=== PATIENT | female | born 1935 | race Caucasian/White ===

== ENCOUNTER → 2016-07-25 | Outpatient (CLI) | payer MEDICARE ==
--- NOTE | 2016-07-25 12:38 | ECHOS ---
DATE OF SERVICE: 07/25/2016 AGE: 81Y SEX: F HT: 63 WT: 128lbs. Protocol Colin: X Others: Stress Echo Stage: II Dur. of Exercise: 6 minutes *Heart Rate Blood Pressure *Rest: 80 Rest: 132/79 * *Max. Achieved: 117 Maximum BP: 170/94 85% PMHR: 118 100% PMHR: 139 *METS: 6.3 INDICATION OF THE STUDY: Chest pain. MEDICATIONS: Synthroid. STRESS DATA: Pretesting physical examination showed a heart rate of 80, pressure is 132/79 mmHg. Baseline EKG showed sinus rhythm. The patient exercised on the treadmill according to Colin protocol for a total of 6 minutes and achieved 6.3 METs. Max heart rate is 117 beats per minutes, which is about 84% of maximum predicted heart rate. Maximum blood pressure was 170/94 mmHg. Clinically, the patient did not have any symptoms of chest pain or chest discomfort during the testing or on recovery. The EKG showed about 0.[address] segment changes most prominent in the inferolateral leads. ECHOCARDIOGRAM IMAGES: On echocardiogram images from parasternal long axis view, parasternal short axis view, apical 4 chamber and apical 2 chamber view were obtained as the baseline images, at the peak of the heart rate, as well as on recovery. The echocardiogram images showed good augmentation in the left ventricular systolic function without any evidence of wall motion abnormalities consistent with ischemia. CONCLUSION: 1. Average exercise capacity. 2. Mild EKG changes in response to exercise. 3. Normal echocardiogram in response to exercise.
== END | disposition home or self-care (01) ==
LOC: RADNMMAIN 10:58
PROVIDERS: ATTEND Family Medicine
DX: R07.9 Chest pain, unspecified (principal)
CPT/HCPCS: 93017; 93350

== ENCOUNTER 2019-11-06 16:34 | Emergency (ER) | payer MEDICARE ==
--- NOTE | 2019-11-06 17:15 | ED ---
Skin/Abscess/FB HPI - General Chief complaint: Skin/Abscess/Foreign Body Stated complaint: Cyst on Neck Time Seen by Provider: 11/06/19 16:51 Source: patient Mode of arrival: ambulatory Limitations: no limitations - History of Present Illness Initial comments: Patient is an 84-year-old female presenting to emergency Department with a chief complaint of a cyst. Patient reports she had a cyst on the back of her neck for many years which did not cause any problems. Patient reports over the last week she has developed gradual increase in redness and tenderness. Patient reports she noticed today there was yellow/white discharge. Patient states the region is tender to palpation. States the pain is slightly worse with left and right rotation. Denies any night sweats fevers or chills. Denies taking medication to alleviate the symptoms. States her PCP evaluated the cyst one week ago but it was not symptomatic then - Related Data Home Medications Medication Instructions Recorded Confirmed Citalopram Hydrobromide [CeleXA] 20 mg PO DAILY 11/06/19 11/06/19 Donepezil HCl [Aricept] 10 mg PO HS 11/06/19 11/06/19 Levothyroxine Sodium [Synthroid] 75 mcg PO DAILY 11/06/19 11/06/19 Pravastatin Sodium [Pravachol] 40 mg PO DAILY 11/06/19 11/06/19 Prevagen 1 tab PO DAILY 11/06/19 11/06/19 Previous Rx's Medication Instructions Recorded Sulfamethox-Tmp 800-160Mg [Bactrim 1 each PO Q12HR #20 tab 11/06/19 Ds] Allergies Allergy/AdvReac Type Severity Reaction Status Date / Time No Known Allergies Allergy Verified 11/06/19 18:57 Review of Systems ROS Statement: Those systems with pertinent positive or pertinent negative responses have been documented in the HPI. ROS Other: All systems not noted in ROS Statement are negative. Past Medical History Past Medical History: Hyperlipidemia, Thyroid Disorder History of Any Multi-Drug Resistant Organisms: None Reported Past Surgical History: Appendectomy Additional Past Surgical History / Comment(s): VEIN STRIPPING Past Psychological History: No Psychological Hx Reported Smoking Status: Never smoker Past Alcohol Use History: Rare Past Drug Use History: None Reported General Exam Limitations: no limitations General appearance: alert, in no apparent distress Head exam: Present: atraumatic, normocephalic, normal inspection Eye exam: Present: normal appearance, PERRL, EOMI Pupils: Present: normal accommodation ENT exam: Present: normal exam, normal oropharynx, mucous membranes moist Neck exam: Present: tenderness (Tenderness on the side of abscess.), full ROM. Absent: normal inspection (Abscess measuring 5 cm in diameter with yellow/white discharge noted on the posterior aspect of the neck.) Respiratory exam: Present: normal lung sounds bilaterally Cardiovascular Exam: Present: regular rate, normal rhythm, normal heart sounds Extremities exam: Present: normal inspection, full ROM Back exam: Present: normal inspection, full ROM Neurological exam: Present: alert, oriented X3 Psychiatric exam: Present: normal affect, normal mood Skin exam: Present: warm, dry, intact, normal color Course Vital Signs 11/06/19 11/06/19 16:36 18:39 Temperature 98.1 F Pulse Rate 66 62 Respiratory 18 18 Rate Blood Pressure 138/59 158/88 O2 Sat by Pulse 97 95 Oximetry Procedures - Incision & Drainage Consent Obtained: verbal consent Indication: Abscess Site: neck Size (cm): 5 Anesthetic Used: lidocaine 1%, with epi Amount (mLs): 5 I&D Cleaning Method: Alcohol Wipe Sterile Field Used?: No Scalpel Used: #11 Needle Aspiration Performed?: No Irrigation Performed?: Yes I&D Drainage Obtained: Pus, Blood Culture Obtained?: Yes Complications: pain, bleeding Patient Tolerated Procedure: well, no complications Medical Decision Making - Medical Decision Making Patient is an 84-year-old female presenting to emergency Department with chief complaint of cyst on the neck. On exam there appears to be a 5 cm lesion on the posterior aspect of the neck. CBC CMP unremarkable. CT of the soft tissue neck was obtained reveals subcutaneous abscess formation with no signs of osteomyelitis or phlegmon. Incision and drainage was performed an large amount of pus were removed. The lesion decreased drastically size. Patient started on Bactrim. Upon discharge, patient is hypertensive. Stay she does not take any antihypertensive medications. Wound culture obtained. I suspect the hypertension is secondary to the drainage where the patient experienced discomfort. Advised the patient to follow-up with her primary care in regards to her hypertension. Return parameters were thoroughly discussed with patient was understanding and agreeable. Case discussed with physician. - Lab Data Result diagrams: 11/06/19 17:34 11/06/19 17:34 Lab Results 05/30/20 05/30/20 Range/Units 17:34 17:34 WBC 8.6 (3.8-10.6) k/uL RBC 4.81 (3.80-5.40) m/uL Hgb 15.3 (11.4-16.0) gm/dL Hct 46.6 H (34.0-46.0) % MCV 97.0 (80.0-100.0) fL MCH 31.8 (25.0-35.0) pg MCHC 32.7 (31.0-37.0) g/dL RDW 12.8 (11.5-15.5) % Plt Count 228 (150-450) k/uL Neutrophils % 77 % Lymphocytes % 12 % Monocytes % 7 % Eosinophils % 2 % Basophils % 0 % Neutrophils # 6.6 (1.3-7.7) k/uL Lymphocytes # 1.0 (1.0-4.8) k/uL Monocytes # 0.6 (0-1.0) k/uL Eosinophils # 0.2 (0-0.7) k/uL Basophils # 0.0 (0-0.2) k/uL Sodium 134 L (137-145) mmol/L Potassium 4.0 (3.5-5.1) mmol/L Chloride 96 L (98-107) mmol/L Carbon Dioxide 32 H (22-30) mmol/L Anion Gap 6 mmol/L BUN 20 H (7-17) mg/dL Creatinine 0.68 (0.52-1.04) mg/dL Est GFR (CKD-EPI)AfAm >90 (>60 ml/min/1.73 sqM) Est GFR (CKD-EPI)NonAf 81 (>60 ml/min/1.73 sqM) Glucose 96 (74-99) mg/dL Calcium 9.8 (8.4-10.2) mg/dL Total Bilirubin 1.0 (0.2-1.3) mg/dL AST 27 (14-36) U/L ALT 14 (4-34) U/L Alkaline Phosphatase 121 (38-126) U/L Total Protein 8.0 (6.3-8.2) g/dL Albumin 4.8 (3.5-5.0) g/dL Disposition Clinical Impression: Abscess of skin of neck Disposition: HOME SELF-CARE Condition: Stable Instructions (If sedation given, give patient instructions): Abscess (ED), Abscess Incision and Drainage (DC) Additional Instructions: Take prescribed medication as directed. Apply warm compress to the neck. Replace gauze daily. Follow with the primary care. Return to emergency department if symptoms worsen. Prescriptions: Sulfamethox-Tmp 800-160Mg [Bactrim Ds] 1 each PO Q12HR #20 tab Is patient prescribed a controlled substance at d/c from ED?: No Referrals: James Warren MD [Primary Care Provider] - 1-2 days Time of Disposition: 19:32
[2019-11-06 18:04] LABS: Basophils % (A) 0 %; Eosinophils # (A) 0.2 k/uL (0-0.7); Eosinophils % (A) 2 %; HCT 46.6 % (34.0-46.0); HGB 15.3 gm/dL (11.4-16.0); Lymphocytes % (A) 12 %; MCH 31.8 pg (25.0-35.0); MCHC 32.7 g/dL (31.0-37.0); Mean Platelet Volume 6.9; Monocytes # (A) 0.6 k/uL (0-1.0); Monocytes % (A) 7 %; Neutrophils # (A) 6.6 k/uL (1.3-7.7); Neutrophils % (A) 77 %; Platelet Count 228 k/uL (150-450); RBC 4.81 m/uL (3.80-5.40); RDW 12.8 % (11.5-15.5); WBC 8.6 k/uL (3.8-10.6)
[2019-11-06 18:12] LABS: ALT 14 U/L (4-34); AST 27 U/L (14-36); African American GFR (CKD) >90 (>60 ml/min/1.73 sqM); Albumin 4.8 g/dL (3.5-5.0); Alkaline Phosphatase 121 U/L (38-126); Anion Gap 6 mmol/L; Blood Urea Nitrogen 20 mg/dL (7-17); Calcium 9.8 mg/dL (8.4-10.2); Carbon Dioxide 32 mmol/L (22-30); Chloride 96 mmol/L (98-107); Glucose 96 mg/dL (74-99); Non-African American GFR(CKD) 81 (>60 ml/min/1.73 sqM); Sodium 134 mmol/L (137-145)
--- NOTE | 2019-11-06 19:04 | CT ---
EXAMINATION TYPE: CT soft tissue neck w con DATE OF EXAM: 11/06/2019 COMPARISON: None HISTORY: Abscess posterior neck. CT DLP: 210.5 mGycm Automated exposure control for dose reduction was used. CONTRAST: Performed with IV Contrast, patient injected with 100 mL of Isovue 300. Multiple axial sections were obtained from the level of the aortic arch to the top of the orbits with intravenous contrast. FINDINGS: Orbital margins are intact. There is no evidence of retro-orbital mass. Parotid glands are symmetric. There is normal aeration of the visualized paranasal sinuses. There is normal aeration of the tempor al bones. There is metal artifact from the dental work which obscures the mandibular region. Submandi bular salivary glands appear symmetric. The thyroid gland has normal size. I see no cervical lymphade nopathy. Prevertebral soft tissues appear normal. Epiglottis is normal. There is no evidence of pharyngeal mas s. Tonsils and adenoids are within normal limits. The tongue appears normal. Subglottic trachea appea rs normal. There is narrowing of C5-6 and C6-7 disc spaces with spurring. Cervical vertebra show some straightening. There is hypertrophic cervical facet arthropathy in the mid cervical spine. There is a 2 cm rounded subcutaneous fluid density mass posterior to the spinous process of C4 and C5 vertebra. The wall is somewhat irregular. I see no focal bone destruction. The images show no pathologic enhancement. IMPRESSION: Subcutaneous posterior fluid density mass consistent with abscess in the midline. No evidence of oste omyelitis. Spondylotic changes in the cervical spine. No anterior cervical significant abnormality id entified. IMPRESSION:
[2019-11-06] MEDS ORDERED: LIDOCAINE 1%-EPI 1:100,000 20 ML VIAL SQ STA (19:06)
[2019-11-06 20:57] VITALS: BP 193/99; PULSE 56; RESP 19; TEMP 97
== END 2019-11-06 20:57 | disposition home or self-care (01) ==
LOC: EC 16:34
DX: L02.11 Cutaneous abscess of neck (principal); I10 Essential (primary) hypertension; E78.5 Hyperlipidemia, unspecified; E07.9 Disorder of thyroid, unspecified; Z79.899 Other long term (current) drug therapy; Z79.890 Hormone replacement therapy
CPT/HCPCS: 36415; 80053; 85025; 87070; 87205; 70491; 10060; 99284; Q9967

== ENCOUNTER 2021-11-14 12:54 | Inpatient (IN) | payer MEDICARE ==
[2021-11-14] MEDS ORDERED: LORazepam 2 MG/ML INJ IV STA ×2 (13:05→16:07)
--- NOTE | 2021-11-14 13:08 | ED ---
General Adult HPI - General Chief complaint: Syncope Stated complaint: syncope Time Seen by Provider: 11/14/21 12:55 Source: patient, family, EMS, RN notes reviewed, old records reviewed Mode of arrival: EMS - History of Present Illness Initial comments: This is an 86-year-old female who presents emergency Department after having had a syncopal episode. Per EMS patient passed out at home and was out for approximately 5 minutes. EMS thought that the patient was somewhat altered however daughter is here now states she is at her neurologic baseline she has dementia and some anxiety. Patient denies any complaints per patient denies headache patient denies numbness weakness. Patient denies any chest pain difficult breathing shortness breath per patient denies any fever chills or cough per patient denies any abdominal pain patient denies nausea vomiting diarrhea. According to EMS the initial blood pressure was low systolic was in the 80s however after a bolus of fluid patient's blood pressure came up to a normal range. Patient does not remember passing out or the events surrounding it. Daughter states this is normal. - Related Data Home Medications Medication Instructions Recorded Confirmed Citalopram Hydrobromide [CeleXA] 20 mg PO DAILY 11/06/19 11/14/21 Donepezil HCl [Aricept] 10 mg PO HS 11/06/19 11/14/21 Levothyroxine Sodium [Synthroid] 75 mcg PO DAILY 11/06/19 11/14/21 Pravastatin Sodium [Pravachol] 40 mg PO DAILY 11/06/19 11/14/21 ALPRAZolam [Xanax] 0.25 mg PO DAILY PRN 11/14/21 11/14/21 Cholecalciferol (Vitamin D3) 125 mcg PO Q48H 11/14/21 11/14/21 [Vitamin D3 (125 MCG = 5,000 IU)] Cyanocobalamin (Vitamin B-12) 5,000 mcg PO DAILY 11/14/21 11/14/21 [Vitamin B-12] Fluticasone Nasal [place] [Flonase 1 spray EA NOSTRIL DAILY 11/14/21 11/14/21 Nasal [place]] Ginkgo Biloba 120mg 120 mg PO DAILY 11/14/21 11/14/21 Memantine [Namenda] 10 mg PO BID 11/14/21 11/14/21 Naproxen Sodium [Aleve] 220 mg PO DAILY PRN 11/14/21 11/14/21 Omeprazole 20 mg PO DAILY 11/14/21 11/14/21 Psyllium Husk 100% [Metamucil 6 gm PO DAILY 11/14/21 11/14/21 Packet] bisacodyL [Dulcolax] 5 mg PO Q48H 11/14/21 11/14/21 hydrALAZINE HCL [Apresoline] 50 mg PO BID 11/14/21 11/14/21 Allergies Allergy/AdvReac Type Severity Reaction Status Date / Time No Known Allergies Allergy Verified 11/14/21 14:17 Review of Systems ROS Statement: Those systems with pertinent positive or pertinent negative responses have been documented in the HPI. ROS Other: All systems not noted in ROS Statement are negative. Past Medical History Past Medical History: Hyperlipidemia, Thyroid Disorder History of Any Multi-Drug Resistant Organisms: None Reported Past Surgical History: Appendectomy Additional Past Surgical History / Comment(s): VEIN STRIPPING Past Psychological History: No Psychological Hx Reported Smoking Status: Unknown if ever smoked Past Alcohol Use History: Rare Past Drug Use History: None Reported General Exam - General Exam Comments Initial Comments: GENERAL: Patient is well-developed and well-nourished. Patient is nontoxic and well- hydrated and is in mild distress. ENT: Neck is soft and supple. No significant lymphadenopathy is noted. Oropharynx is clear. Moist mucous membranes. Neck has full range of motion without eliciting any pain. EYES: The sclera were anicteric and conjunctiva were pink and moist. Extraocular movements were intact and pupils were equal round and reactive to light. Ey elids were unremarkable. PULMONARY: Unlabored respirations. Good breath sounds bilaterally. No audible rales rhonchi or wheezing was noted. CARDIOVASCULAR: There is a regular rate and rhythm without any murmurs gallops or rubs. ABDOMEN: Soft and nontender with normal bowel sounds. SKIN: Skin is clear with no lesions or rashes and otherwise unremarkable. NEUROLOGIC: Patient is alert and oriented x3. Cranial nerves II through XII are grossly intact. Motor and sensory are also intact. Normal speech, volume and content. Symmetrical smile. MUSCULOSKELETAL: Normal extremities with adequate strength and full range of motion. LYMPHATICS: No significant lymphadenopathy is noted PSYCHIATRIC: Patient is mildly anxious. Course Vital Signs 11/14/21 11/14/21 11/14/21 12:56 14:06 16:59 Temperature 97.9 F Pulse Rate 60 64 56 L Respiratory 18 18 18 Rate Blood Pressure 138/76 138/76 147/82 O2 Sat by Pulse 94 L 94 L Oximetry Medical Decision Making - Medical Decision Making EKG shows sinus bradycardia 55 bpm UT interval is 106 dresses 97 QT intervals 516 QTC is 504. Patient's EKG has a long QT but there is no ST segment patient depression. CT of the brain shows no acute abnormality. Chest x-ray shows no acute abnormality. I spoke with Dr. Dover he agreed to admit the patient admitted the patient wrote admitting orders. I consulted cardiology - Lab Data Result diagrams: 11/14/21 13:06 11/14/21 13:06 Lab Results 11/14/21 11/14/21 11/14/21 Range/Units 13:06 13:06 13:06 WBC 5.0 (3.8-10.6) k/uL RBC 4.39 (3.80-5.40) m/uL Hgb 13.2 (11.4-16.0) gm/dL Hct 41.7 (34.0-46.0) % MCV 95.0 (80.0-100.0) fL MCH 30.1 (25.0-35.0) pg MCHC 31.6 (31.0-37.0) g/dL RDW 12.1 (11.5-15.5) % Plt Count 226 (150-450) k/uL MPV 7.1 Neutrophils % 74 % Lymphocytes % 14 % Monocytes % 9 % Eosinophils % 2 % Basophils % 1 % Neutrophils # 3.7 (1.3-7.7) k/uL Lymphocytes # 0.7 L (1.0-4.8) k/uL Monocytes # 0.4 (0-1.0) k/uL Eosinophils # 0.1 (0-0.7) k/uL Basophils # 0.0 (0-0.2) k/uL PT 10.3 (9.0-12.0) sec INR 0.9 (<1.2) APTT 20.4 L (22.0-30.0) sec Sodium 129 L (137-145) mmol/L Potassium 3.9 (3.5-5.1) mmol/L Chloride 97 L (98-107) mmol/L Carbon Dioxide 23 (22-30) mmol/L Anion Gap 9 mmol/L BUN 13 (7-17) mg/dL Creatinine 0.83 (0.52-1.04) mg/dL Est GFR (CKD-EPI)AfAm 74 (>60 ml/min/1.73 sqM) Est GFR (CKD-EPI)NonAf 64 (>60 ml/min/1.73 sqM) Glucose 120 H (74-99) mg/dL POC Glucose (mg/dL) (75-99) mg/dL POC Glu Learning Coach ID Calcium 8.4 (8.4-10.2) mg/dL Magnesium 1.9 (1.6-2.3) mg/dL Total Bilirubin 1.1 (0.2-1.3) mg/dL AST 34 (14-36) U/L ALT 17 (4-34) U/L Alkaline Phosphatase 75 (38-126) U/L Troponin I (0.000-0.034) ng/mL Total Protein 6.2 L (6.3-8.2) g/dL Albumin 3.7 (3.5-5.0) g/dL Urine Color Urine Appearance (Clear) Urine pH (5.0-8.0) Ur Specific [place] (1.001-1.035) Urine Protein (Negative) Urine Glucose (UA) (Negative) Urine Ketones (Negative) Urine Blood (Negative) Urine Nitrite (Negative) Urine Bilirubin (Negative) Urine Urobilinogen (<2.0) mg/dL Ur Leukocyte Esterase (Negative) 11/14/21 11/14/21 11/14/21 Range/Units 13:06 13:07 15:03 WBC (3.8-10.6) k/uL RBC (3.80-5.40) m/uL Hgb (11.4-16.0) gm/dL Hct (34.0-46.0) % MCV (80.0-100.0) fL MCH (25.0-35.0) pg MCHC (31.0-37.0) g/dL RDW (11.5-15.5) % Plt Count (150-450) k/uL MPV Neutrophils % % Lymphocytes % % Monocytes % % Eosinophils % % Basophils % % Neutrophils # (1.3-7.7) k/uL Lymphocytes # (1.0-4.8) k/uL Monocytes # (0-1.0) k/uL Eosinophils # (0-0.7) k/uL Basophils # (0-0.2) k/uL PT (9.0-12.0) sec INR (<1.2) APTT (22.0-30.0) sec Sodium (137-145) mmol/L Potassium (3.5-5.1) mmol/L Chloride (98-107) mmol/L Carbon Dioxide (22-30) mmol/L Anion Gap mmol/L BUN (7-17) mg/dL Creatinine (0.52-1.04) mg/dL Est GFR (CKD-EPI)AfAm (>60 ml/min/1.73 sqM) Est GFR (CKD-EPI)NonAf (>60 ml/min/1.73 sqM) Glucose (74-99) mg/dL POC Glucose (mg/dL) 121 H (75-99) mg/dL POC Glu Learning Coach ID Diane Soto Calcium (8.4-10.2) mg/dL Magnesium (1.6-2.3) mg/dL Total Bilirubin (0.2-1.3) mg/dL AST (14-36) U/L ALT (4-34) U/L Alkaline Phosphatase (38-126) U/L Troponin I <0.012 (0.000-0.034) ng/mL Total Protein (6.3-8.2) g/dL Albumin (3.5-5.0) g/dL Urine Color Light Yellow Urine Appearance Clear (Clear) Urine pH 8.0 (5.0-8.0) Ur Specific [place] 1.007 (1.001-1.035) Urine Protein Negative (Negative) Urine Glucose (UA) Negative (Negative) Urine Ketones Negative (Negative) Urine Blood Negative (Negative) Urine Nitrite Negative (Negative) Urine Bilirubin Negative (Negative) Urine Urobilinogen <2.0 (<2.0) mg/dL Ur Leukocyte Esterase Negative (Negative) Disposition Clinical Impression: Syncope, Hypotension Disposition: ADMITTED IP TO THIS HOSP Referrals: James Warren MD [Primary Care Provider] - 1-2 days Time of Disposition: 18:11
[2021-11-14 13:10] LABS: Glucose,Whole Blood 121 mg/dL (75-99)
[2021-11-14 13:20] LABS: Basophils % (A) 1 %; Eosinophils # (A) 0.1 k/uL (0-0.7); Eosinophils % (A) 2 %; HCT 41.7 % (34.0-46.0); HGB 13.2 gm/dL (11.4-16.0); Lymphocytes # (A) 0.7 k/uL (1.0-4.8); Lymphocytes % (A) 14 %; MCH 30.1 pg (25.0-35.0); MCHC 31.6 g/dL (31.0-37.0); Mean Platelet Volume 7.1; Monocytes # (A) 0.4 k/uL (0-1.0); Monocytes % (A) 9 %; Neutrophils # (A) 3.7 k/uL (1.3-7.7); Neutrophils % (A) 74 %; Platelet Count 226 k/uL (150-450); RBC 4.39 m/uL (3.80-5.40); RDW 12.1 % (11.5-15.5)
[2021-11-14 13:38] LABS: INR 0.9 (<1.2); Prothrombin Time 10.3 sec (9.0-12.0)
[2021-11-14 13:41] LABS: Albumin 3.7 g/dL (3.5-5.0); Calcium 8.4 mg/dL (8.4-10.2); Total Bilirubin 1.1 mg/dL (0.2-1.3); Total Protein 6.2 g/dL (6.3-8.2)
[2021-11-14 13:43] LABS: Partial Thromboplastin Time 20.4 sec (22.0-30.0)
[2021-11-14 13:50] LABS: Magnesium 1.9 mg/dL (1.6-2.3); Potassium 3.9 mmol/L (3.5-5.1)
[2021-11-14 15:24] LABS: Appearance,Urine Clear (Clear); Bilirubin,Urine Negative (Negative); Blood,Urine Negative (Negative); Color,Urine Light Yellow; Glucose,Urine (UA) Negative (Negative); Ketones,Urine Negative (Negative); Leukocyte Esterase,Urine Negative (Negative); Nitrite,Urine Negative (Negative); Protein,Urine Negative (Negative); Specific Gravity,Urine 1.007 (1.001-1.035); Urobilinogen,Urine <2.0 mg/dL (<2.0)
[2021-11-14] MEDS ORDERED: ASPIRIN 81 MG PO STA (16:05)
[2021-11-14] MEDS ORDERED: NITROGLYCERIN OINT 1 INCH/GM PACKET TOPICAL STA (16:05)
--- NOTE | 2021-11-14 17:44 | CT ---
EXAMINATION TYPE: CT brain wo con DATE OF EXAM: 11/14/2021 COMPARISON: 02/03/2014 HISTORY: Altered mental status. CT DLP: 1058.4 mGycm Automated exposure control for dose reduction was used. Images of the brain obtained with no contrast. There is patchy hypodensity in the periventricular white matter. There is cerebral cortical atrophy. There is no mass effect or midline shift. No sign of intracranial hemorrhage. Calvarium is intact. Sk ull base is intact. IMPRESSION: Cerebral atrophy and extensive chronic small vessel ischemia. No acute intracranial abnormality. No c hange.
[2021-11-14] MEDS ORDERED: NITROGLYCERIN SL TABS 0.4 MG TAB SUBLINGUAL PRN (18:11)
--- NOTE | 2021-11-14 18:18 | XR ---
EXAMINATION TYPE: XR chest 2V DATE OF EXAM: 11/14/2021 COMPARISON: 02/03/2014 HISTORY: Chest pain TECHNIQUE: FINDINGS: There is no heart failure nor confluent pneumonic infiltrate. There is some minimal coarse density left lung base. There are no hilar masses. Bony thorax is intact. IMPRESSION: There is mild scarring or subsegmental atelectasis left lung base. There is improved aera tion of lungs overall compared to old exam.
[2021-11-14] MEDS ORDERED: ALPRAZolam 0.25 MG TAB PO PRN (20:18)
[2021-11-14] MEDS: DONEPEZIL 10 MG TAB PO SCH (20:52)
[2021-11-14] MEDS: hydrALAZINE HCL 25 MG TAB PO SCH (20:52)
[2021-11-15] MEDS ORDERED: NITROGLYCERIN OINT 1 INCH/GM PACKET TOPICAL SCH
[2021-11-15] MEDS: LEVOTHYROXINE 75 MCG TAB PO SCH (06:10)
[2021-11-15] MEDS ORDERED: CHOLECALCIFEROL 125 MCG (5000 IU) TABLET PO SCH (09:00)
[2021-11-15] MEDS ORDERED: ASPIRIN 325 MG TAB PO SCH (09:00)
[2021-11-15] MEDS ORDERED: bisacodyL 5 MG TABLET.DR PO SCH (09:00)
[2021-11-15] MEDS ORDERED: GINKGO BILOBA 120 MG PO SCH (09:00)
[2021-11-15 09:43] LABS: LDL Cholesterol,Calculated 118.4 mg/dL (0.0-131.0); VLDL Calculation 15.98 mg/dL (5.00-40.00)
[2021-11-15] MEDS: PANTOPRAZOLE 40 MG TABLET PO SCH (09:47)
[2021-11-15] MEDS: CITALOPRAM HYDROBROMIDE 20 MG TAB PO SCH (09:47)
[2021-11-15] MEDS: PRAVASTATIN SODIUM 40 MG TAB PO SCH (09:47)
[2021-11-15] MEDS: CYANOCOBALAMIN 500 MCG TAB PO SCH (09:48)
[2021-11-15] MEDS: PSYLLIUM HUSK 100% 6 GM PACKET PO SCH (09:48)
[2021-11-15] MEDS: MEMANTINE 10 MG TAB PO SCH ×2 (09:48→20:02)
--- NOTE | 2021-11-15 11:31 | P.CRDCN ---
History of Present Illness History of present illness: HISTORY OF PRESENTING ILLNESS This is a pleasant 86-year-old female past medical history significant for hypertension, dyslipidemia, dementia, hypothyroidism . She does not follow with a fur feeder. We have been asked to see in consultation for syncope. Patient presents to the ER, she states she is confused on what happened, she cannot remember if she passed out or not. She is alert and oriented to person. Per EMS, patient had a syncopal episode at home and apparently passed out at home for approximately 5 minutes. Patient denies any warning signs. She denies any lightheadedness, dizziness, weakness, headache, chest pain, shortness of breath, nausea, vomiting, abdominal pain. Per the EMS report patient's blood pressure was low with a systolic in the 80s. She was given a bolus of normal saline and her blood pressure improved. Patient denies any history of CAD, arrhythmia, s yncopal episodes in the past, diabetes, stroke, [place]. She denies any tobacco use DIAGNOSTICS EKG reveals sinus bradycardia, heart rate 55, nonspecific T-wave abnormalities, no acute ischemia. QTC 504 Telemetry tracings indicate sinus mechanism with heart rate in the 50s60s, no significant bradycardia noted, no pauses or arrhythmia noted. Patient underwent a stress echo test in 2017 which was negative for stress induced ischemia Chest xray mild scarring in subsegmental atelectasis at the left lung base. No acute heart failure or cardiopulmonary process Brain CT performed revealed cerebral atrophy and extensive chronic small vessel ischemic change. No acute intracranial abnormality. No change Laboratory reviewed, troponin negative 3, sodium 129, potassium 3.9, BUN 13, serum creatinine 2.8, magnesium 1.9, liver enzymes within normal limits, triglycerides 79, cholesterol 25, LDL 118, UA negative, WBC 5, hemoglobin 13.2, platelets 226 Current home cardiac medications include []. REVIEW OF SYSTEMS At the time of my exam: CONSTITUTIONAL: Denies fever or chills. CARDIOVASCULAR: Denies chest pain, shortness of breath, orthopnea, PND or palpitations. RESPIRATORY: Denies cough. GASTROINTESTINAL: Denies abdominal pain, diarrhea, constipation, nausea or vomiting. MUSCULOSKELETAL: Denies myalgias. NEUROLOGIC: Denies numbness, tingling, headacbe or weakness. ENDOCRINE: Denies fatigue, weight change, polydipsia or polyurina. GENITOURINARY: Denies burning, hematuria or urgency with micturation. HEMATOLOGIC: Denies history of anemia or bleeding. PHYSICAL EXAMINATION Blood pressure 110/75, heart rate 64, afebrile, oxygen saturation 96% on room air CONSTITUTIONAL: No apparent distress. HEENT: Head is normocephalic. Pupils are equal, round. Sclerae anicteric. Mucous membranes of the mouth are moist. No JVD. No carotid bruit. CHEST EXAMINATION: Lungs are clear to auscultation. No chest wall tenderness is noted on palpation or with deep breathing. HEART EXAMINATION: Regular rate and rhythm. S1, S2 heard. No murmurs, gallops or rub. ABDOMEN: Soft, nontender. Positive bowel sounds. EXTREMITIES: 2+ peripheral pulses, no lower extremity edema and no calf tenderness. NEUROLOGIC EXAMINATION: Patient is awake, alert and oriented x1 ASSESSMENT Possible syncopal episode at home, possibly related to hypotension Hypotension History of hypertension Dementia Dyslipidemia Hypothyroidism Hyponatremia PLAN Hold Hydralazine Obtain 2D echocardiogram and doppler study to assess cardiac structure and function. Monitor on associate counsel BMP Further recommendations based on clinical course Nurse practitioner note has been reviewed by physician. Signing provider agrees with the documented findings, assessment, and plan of care. Past Medical History Past Medical History: Dementia, Hyperlipidemia, Thyroid Disorder Additional Past Medical History / Comment(s): A&O to 1 at baseline History of Any Multi-Drug Resistant Organisms: None Reported Past Surgical History: Appendectomy Additional Past Surgical History / Comment(s): VEIN STRIPPING Past Psychological History: No Psychological Hx Reported Smoking Status: Never smoker Past Alcohol Use History: Rare Past Drug Use History: None Reported Medications and Allergies Home Medications Medication Instructions Recorded Confirmed Type Citalopram Hydrobromide [CeleXA] 20 mg PO DAILY 11/06/19 11/14/21 History Donepezil HCl [Aricept] 10 mg PO HS 11/06/19 11/14/21 History Levothyroxine Sodium [Synthroid] 75 mcg PO DAILY 11/06/19 11/14/21 History Pravastatin Sodium [Pravachol] 40 mg PO DAILY 11/06/19 11/14/21 History ALPRAZolam [Xanax] 0.25 mg PO DAILY PRN 11/14/21 11/14/21 History Cholecalciferol (Vitamin D3) 125 mcg PO Q48H 11/14/21 11/14/21 History [Vitamin D3 (125 MCG = 5,000 IU)] Cyanocobalamin (Vitamin B-12) 5,000 mcg PO DAILY 11/14/21 11/14/21 History [Vitamin B-12] Fluticasone Nasal [place] [Flonase 1 spray EA NOSTRIL DAILY 11/14/21 11/14/21 History Nasal [place]] Ginkgo Biloba 120mg 120 mg PO DAILY 11/14/21 11/14/21 History Memantine [Namenda] 10 mg PO BID 11/14/21 11/14/21 History Naproxen Sodium [Aleve] 220 mg PO DAILY PRN 11/14/21 11/14/21 History Omeprazole 20 mg PO DAILY 11/14/21 11/14/21 History Psyllium Husk 100% [Metamucil 6 gm PO DAILY 11/14/21 11/14/21 History Packet] bisacodyL [Dulcolax] 5 mg PO Q48H 11/14/21 11/14/21 History hydrALAZINE HCL [Apresoline] 50 mg PO BID 11/14/21 11/14/21 History Allergies Allergy/AdvReac Type Severity Reaction Status Date / Time No Known Allergies Allergy Verified 11/14/21 14:17 Physical Exam Vitals: Vital Signs Temp Pulse Pulse Resp BP BP Pulse Ox 11/15/21 04:00 98.0 F 64 18 110/75 96 11/15/21 02:00 78 18 11/15/21 00:00 98.1 F 78 18 106/70 96 11/14/21 20:00 98.4 F 90 18 114/77 95 11/14/21 18:32 65 18 120/73 96 11/14/21 16:59 56 L 18 147/82 94 L 11/14/21 14:06 64 18 138/76 94 L 11/14/21 12:56 97.9 F 60 18 138/76 Intake and Output 11/14/21 11/15/21 11/15/21 22:59 06:59 14:59 Other: Voiding Method Toilet Toilet # Voids 2 Weight 70.76 kg Results 11/14/21 13:06 11/14/21 13:06 Cardiac Enzymes 11/14/21 11/14/21 11/14/21 Range/Units 13:06 13:06 19:15 AST 34 (14-36) U/L Troponin I <0.012 0.019 (0.000-0.034) ng/mL 11/14/21 Range/Units 21:40 AST (14-36) U/L Troponin I <0.012 (0.000-0.034) ng/mL Coagulation 11/14/21 Range/Units 13:06 PT 10.3 (9.0-12.0) sec APTT 20.4 L (22.0-30.0) sec CBC 11/14/21 Range/Units 13:06 WBC 5.0 (3.8-10.6) k/uL RBC 4.39 (3.80-5.40) m/uL Hgb 13.2 (11.4-16.0) gm/dL Hct 41.7 (34.0-46.0) % Plt Count 226 (150-450) k/uL Comprehensive Metabolic Panel 11/14/21 Range/Units 13:06 Sodium 129 L (137-145) mmol/L Potassium 3.9 (3.5-5.1) mmol/L Chloride 97 L (98-107) mmol/L Carbon Dioxide 23 (22-30) mmol/L BUN 13 (7-17) mg/dL Creatinine 0.83 (0.52-1.04) mg/dL Glucose 120 H (74-99) mg/dL Calcium 8.4 (8.4-10.2) mg/dL AST 34 (14-36) U/L ALT 17 (4-34) U/L Alkaline Phosphatase 75 (38-126) U/L Total Protein 6.2 L (6.3-8.2) g/dL Albumin 3.7 (3.5-5.0) g/dL Current Medications Generic Name Dose Route Start Last Admin Trade Name Freq PRN Reason Stop Dose Admin Alprazolam 0.25 mg 11/14/21 20:18 Alprazolam 0.25 Mg Tab PO DAILY PRN Anxiety Bisacodyl 5 mg 11/15/21 09:00 Bisacodyl 5 Mg Tablet. PO Q48H [facility] Cholecalciferol 125 mcg 11/15/21 09:00 Cholecalciferol 125 Mcg (5000 Iu) Tablet PO Q48H [facility]AS[facility] Citalopram Hydrobromide 20 mg 11/15/21 09:00 Citalopram Hydrobromide 20 Mg Tab PO DAILY PENDING SALE TO [facility] Cyanocobalamin 5,000 mcg 11/15/21 09:00 Cyanocobalamin 500 Mcg Tab PO DAILY PENDING SALE TO [facility] Donepezil HCl 10 mg 11/14/21 21:00 11/14/21 20:52 Donepezil 10 Mg Tab PO 10 mg HS [facility]ASILE Administration Fluticasone Propionate 1 spray 11/15/21 09:00 Fluticasone 50mcg/Brent Nasal 16gm EA NOSTRIL DAILY PENDING SALE TO [facility] Hydralazine HCl 25 mg 11/14/21 21:00 11/14/21 20:52 Hydralazine Hcl 25 Mg Tab PO 25 mg BID PENDING S[facility] TO [facility] Administration Levothyroxine Sodium 75 mcg 11/15/21 06:30 11/15/21 06:10 Levothyroxine 75 Mcg Tab PO 75 mcg DAILY@0630 PENDING SALE TO [facility] Administration Memantine 10 mg 11/15/21 09:00 Memantine 10 Mg Tab PO BID PENDING SALE TO [facility] Nitroglycerin 0.4 mg 11/14/21 18:11 Nitroglycerin Sl Tabs 0.4 Mg Tab SUBLINGUAL Q5M PRN Chest Pain Pantoprazole Sodium 40 mg 11/15/21 09:00 Pantoprazole 40 Mg Tablet PO DAILY PENDING SALE TO [facility] Pravastatin Sodium 40 mg 11/15/21 09:00 Pravastatin Sodium 40 Mg Tab PO DAILY PENDING SALE TO [facility] Psyllium Hydrophilic Mucilloid 6 gm 11/15/21 09:00 Psyllium Husk 100% 6 Gm Packet PO DAILY PENDING SALE TO [facility] Intake and Output 11/14/21 11/15/21 11/15/21 22:59 06:59 14:59 Other: Voiding Method Toilet Toilet # Voids 2 Weight 70.76 kg 11/14/21 13:06 11/14/21 13:06
--- NOTE | 2021-11-15 11:45 | P.CNNES ---
History of Present Illness Consult date: 11/15/21 Requesting physician: Delicia Almendarez Reason for Consult: syncope History of Present Illness: This is an 86-year-old woman with medical history of reported dementia, anxiety, hypothyroidism, hyperlipidemia who presented emergency department on 11/14/2021 for syncopal episode. Some of the history is obtained from patient's [id number] who is at bedside. It seems that the patient had a syncopal episode and passed out and unsure of duration but approximately 5 minutes per the ED note. According to the daughter the patient has a caregiver at home and she passed out between 11 to 11:30 AM yesterday and she was standing up the entire time and then doing her exercise and then when she was walk-in all of a sudden she stiffened up and that seems that she passed out. It did not seem that the patient had any jerk of any extremities, urinary or bowel consult tongue bite or tongue soreness. Unsure if the patient had any at fixed gaze. Patient denied any auras prior to passing out. According to ED team, per EMS her initial blood pressure was low with systolic in the 80s and she received fluids and blood pressure was back to baseline now. She does not recall having the passing out episode. Patient does not have any history of seizures or any prior episodes of passing out. Per the daughter she has dementia but currently is back to baseline. Patient denies of any focal weakness, numbness, any visual disturbance or headache. Some of her medication consist of pravastatin, vitamin B12, Xanax, Namenda, Aricept. Some other workup in our facility during this hospital visit consisted of: Patient is afebrile CBC with differential is unremarkable neck saw Sodium is 129, initial serum glucose is 120 otherwise rest of chemistry panel is unremarkable. CT of the head is reported as cerebral atrophy and extensive chronic small vessel ischemia. No acute intracranial abnormality. No change. I could not review the CT of the head since there is only reported and there is no imaging uploaded. EKG is reported as sinus bradycardia with a ventricular rate of 55. Prolonged QT interval with the QT/QTC is 516 07/14/2003. Review of Systems Review of system: The 12 point system was reviewed and apparent positive and negative per HPI. Past Medical History Past Medical History: Dementia, Hyperlipidemia, Thyroid Disorder Additional Past Medical History / Comment(s): A&O to 1 at baseline History of Any Multi-Drug Resistant Organisms: None Reported Past Surgical History: Appendectomy Additional Past Surgical History / Comment(s): VEIN STRIPPING Past Psychological History: No Psychological Hx Reported Smoking Status: Never smoker Past Alcohol Use History: Rare Past Drug Use History: None Reported Medications and Allergies Home Medications Medication Instructions Recorded Confirmed Type Citalopram Hydrobromide [CeleXA] 20 mg PO DAILY 11/06/19 11/14/21 History Donepezil HCl [Aricept] 10 mg PO HS 11/06/19 11/14/21 History Levothyroxine Sodium [Synthroid] 75 mcg PO DAILY 11/06/19 11/14/21 History Pravastatin Sodium [Pravachol] 40 mg PO DAILY 11/06/19 11/14/21 History ALPRAZolam [Xanax] 0.25 mg PO DAILY PRN 11/14/21 11/14/21 History Cholecalciferol (Vitamin D3) 125 mcg PO Q48H 11/14/21 11/14/21 History [Vitamin D3 (125 MCG = 5,000 IU)] Cyanocobalamin (Vitamin B-12) 5,000 mcg PO DAILY 11/14/21 11/14/21 History [Vitamin B-12] Fluticasone Nasal [place] [Flonase 1 spray EA NOSTRIL DAILY 11/14/21 11/14/21 History Nasal [place]] Ginkgo Biloba 120mg 120 mg PO DAILY 11/14/21 11/14/21 History Memantine [Namenda] 10 mg PO BID 11/14/21 11/14/21 History Naproxen Sodium [Aleve] 220 mg PO DAILY PRN 11/14/21 11/14/21 History Omeprazole 20 mg PO DAILY 11/14/21 11/14/21 History Psyllium Husk 100% [Metamucil 6 gm PO DAILY 11/14/21 11/14/21 History Packet] bisacodyL [Dulcolax] 5 mg PO Q48H 11/14/21 11/14/21 History hydrALAZINE HCL [Apresoline] 50 mg PO BID 11/14/21 11/14/21 History Allergies Allergy/AdvReac Type Severity Reaction Status Date / Time No Known Allergies Allergy Verified 11/14/21 14:17 Physical Examination - Vital Signs Vital Signs: Vital Signs Temp Pulse Pulse Resp BP BP Pulse Ox 11/15/21 04:00 98.0 F 64 18 110/75 96 11/15/21 02:00 78 18 11/15/21 00:00 98.1 F 78 18 106/70 96 11/14/21 20:00 98.4 F 90 18 114/77 95 11/14/21 18:32 65 18 120/73 96 11/14/21 16:59 56 L 18 147/82 94 L 11/14/21 14:06 64 18 138/76 94 L 11/14/21 12:56 97.9 F 60 18 138/76 Intake and Output 11/14/21 11/15/21 11/15/21 22:59 06:59 14:59 Intake Total 118 Balance 118 Intake: Oral 118 Other: Voiding Method Toilet Toilet # Voids 2 Weight 70.76 kg GENERAL: The patient is lying in bed and is not in acute distress. CHEST: The heart rate is regular rate rhythm. No murmurs to auscultation. LUNG: Clear to auscultation bilaterally no wheezing noted throughout. Not labored breathing. ABDOMEN/GI: Bowel sounds present in all 4 quadrants. No tenderness to palpation throughout. NEUROLOGICAL: Higher mental function: The patient is awake, alert, oriented to self and stated was in hospital. Upon asking the year she had a pause and look at the board and read it was 2021. Patient is following simple commands. No aphasia and no neglect. Cranial nerves: The pupils are round, equal and reactive to light and accommodation. Visual sellers are full to confrontation throughout. Extraocular movement is intact no nystagmus is noted. Facial sensation is normal to touch throughout. The facial strength is normal throughout. Hearing is mildly decreased bilaterally to hand rub. Tongue is midline and moved [id number] without any difficulty. No dysarthria is noted. Shoulder shrug is normal bilaterally. Motor: The strength is 5 over 5 throughout. Normal tone and bulk. Cerebellum: Normal finger to nose bilaterally. Sensation: Sensation is normal to touch throughout. Reflexes (right/left): 1+ throughout. Plantars are downgoing bilaterally. Results - Laboratory Findings CBC and BMP: 11/14/21 13:06 11/14/21 13:06 Abnormal Lab Findings: Abnormal Labs 11/14/21 11/14/21 11/14/21 13:06 13:06 13:06 Lymphocytes # 0.7 L APTT 20.4 L Sodium 129 L Chloride 97 L Glucose 120 H POC Glucose (mg/dL) Total Protein 6.2 L Cholesterol HDL Cholesterol 11/14/21 11/14/21 13:06 13:07 Lymphocytes # APTT Sodium Chloride Glucose POC Glucose (mg/dL) 121 H Total Protein Cholesterol 205.00 H HDL Cholesterol 70.60 H Assessment and Plan Assessment: Syncopal episode seems more cardiogenic (blood pressure as low as 80's reported by EMS, bradycardiac, prolonged QT interval). Unlikely seizure Reported dementia Hyper thousand Hyperlipidemia Anxiety Plan: I ordered a routine EEG. I'll not start the patient on antiepileptic drugs unless there is epileptiform discharges or seizure on the EEG Orthostatic vitals was ordered and is pending Cardiology team is consulted 2-D echo was ordered by the cardiac team We'll defer the rest of medical management to primary team. If routine EEG and orthostatics are normal from a neurological perspective no further additional workup needed. The plan is discussed with patient, her [id number] (who is at bedside) and nurse. Thank you for the consultation. Prashant Bell M.D. Neuro-Hospitalist Time with Patient: Greater than 30
--- NOTE | 2021-11-15 11:55 | CA ---
Transthoracic Echo Report Name: Bartolome Glaser Age: 86 Gender: F : 1935 Exam Date: 11/15/2021 10:36 Exam Location: [facility] Ht (in): 65 Wt (lb): 156 Ordering Physician: Dorita Cabral Attending/Referring Phys: Systems Admin Lilibeth Herrera RDCS Procedure CPT: Indications: Syncope Cardiac Hx: Technical Quality: Good Contrast 1: Total Dose (mL): Contrast 2: Total Dose (mL): MEASUREMENTS (Male / Female) Normal Values 2D ECHO LV Diastolic Diameter PLAX 4.2 cm 4.2 - 5.9 / 3.9 - 5.3 cm LV Systolic Diameter PLAX 3.3 cm IVS Diastolic Thickness 1.1 cm 0.6 - 1.0 / 0.6 - 0.9 cm LVPW Diastolic Thickness 1.2 cm 0.6 - 1.0 / 0.6 - 0.9 cm LV Relative Wall Thickness 0.6 RV Internal Dim ED PLAX 4.2 cm LA Volume 49.5 cm??? 18 - 58 / 22 - 52 cm??? M-MODE Aortic Root Diameter MM 3.7 cm MV E Point Septal Separation 0.4 cm AV Cusp Separation MM 1.0 cm DOPPLER AV Peak Velocity 147.9 cm/s AV Peak Gradient 8.7 mmHg AV Mean Velocity 105.0 cm/s AV Mean Gradient 5.2 mmHg AV Velocity Time Integral 29.1 cm AI Peak Velocity 413.8 cm/s AI Peak Gradient 68.5 mmHg AI Pressure Half Time 593.1 ms LVOT Peak Velocity 117.9 cm/s LVOT Peak Gradient 5.6 mmHg MV Area PHT 4.8 cm??? Mitral E Point Velocity 56.2 cm/s Mitral A Point Velocity 76.1 cm/s Mitral E to A Ratio 0.7 MV Deceleration Time 157.1 ms MV E' Velocity 4.9 cm/s Mitral E to MV E' Ratio 11.4 TR Peak Velocity 158.0 cm/s TR Peak Gradient 10.0 mmHg Right Ventricular Systolic Press 15.0 mmHg FINDINGS Left Ventricle Normal Left ventricular size, mild wall thickness, systolic function with no obvious regional wall motion abnormalities. Right Ventricle Normal right ventricular size and function. Right Atrium Normal right atrial size. Left Atrium Mild left atrial dilatation. Mitral Valve Mild mitral regurgitation. Aortic Valve Aortic valve sclerosis. Ascending Aortic Root is dilated and measures 4.2cm.mild aortic regurgitation. Tricuspid Valve Structurally normal tricuspid valve. Pulmonic Valve Pulmonic valve not well visualized. Pericardium Normal pericardium. Aorta Normal size aortic root and proximal ascending aorta. CONCLUSIONS #1. Normal left ventricular size and function. #2. Mild left atrial enlargement. #3. Dilated dilated root, measuring about 4.2 cm with mild aortic regurgitation. #4. Mild mitral regurgitation Previewed by: Dr. Mary Rabago MD (Electronically Signed) Final Date: 15 November 2021 11:54
[2021-11-15 12:22] VITALS: RESP 18
[2021-11-15] MEDS: hydrALAZINE HCL 25 MG TAB PO SCH (12:30)
--- NOTE | 2021-11-15 13:32 | P.HPIM ---
History of Present Illness H&P Date: 11/15/21 HISTORY OF PRESENT ILLNESS This is an 86-year-old female patient of Dr. James Warren with past medical history of hypertension, hyperlipidemia, hypothyroidism, dementia, generalized anxiety disorder, chronic constipation, gastroesophageal reflux disease. Unable to obtain history from the patient due to her mental status and underlying dementia. Patient apparently had a syncopal episode at home that lasted about 5 minutes and her mental status seemed to be off according to daughter. Patient denies any complaints of headache or pain. Patient was found to be afebrile, heart rate 60, blood pressure 138/76, pulse ox 94%. EKG sinus bradycardia with no acute ST changes. hall monitor sinus rhythm. CAT scan of the brain showed no acute abnormality. Chest x-ray shows no acute abnormality. CBC within normal limits. Sodium 129, potassium 3.9, chloride 97, CO2 23, BUN 13 and creatinine 0.83. Blood sugar 120. Liver function tests are normal. Troponin negative. Urinalysis negative. Patient was seen by cardiology and recommended holding hydralazine, echocardiogr am and monitor telemetry. Patient was seen by neurology ordered EEG and if normal along with orthostatics, patient is cleared by neurology for discharge. Echocardiogram reveals normal left atrial size and function, mild atrial enlargement, dilated aortic root measuring 4.2 cm with mild aortic regurg itation, mild mitral regurgitation. Patient admitted to the cardiac stepdown unit. Blood pressure medications adjusted. REVIEW OF SYSTEMS Unable to obtain due to patient's mental status. SOCIAL HISTORY Unable to obtain due to patient's mental status. Patient apparently lives with her daughter. FAMILY HISTORY Both parents are . Unable to determine cause. Patient has 2 brothers and one is according to the patient. She has 3 children.. PHYSICAL EXAMINATION Gen: This is an 86-year-old female. She is resting in bed and appears to be comfortable and in no acute distress. HEENT: Head is atraumatic, normocephalic. Pupils equal, round. Sclerae is anicteric. NECK: Supple. No JVD. No lymphadenopathy. No thyromegaly. LUNGS: Clear to auscultation. No wheezes or rhonchi. No intercostal retractions. HEART: Regular rate and rhythm. No murmur. ABDOMEN: Soft. Bowel sounds are present. No masses. No tenderness. EXTREMITIES: No pedal edema. No calf tenderness. NEUROLOGICAL: Patient is awake, alert and oriented to person only. Patient has significant confusion, short-term memory deficit. ASSESSMENT AND PLAN 1. Syncopal episode most likely secondary to hypotension. Consult with cardiology and neurology appreciated. Orthostatic vital signs. 2. Hypotension. Cardiology discontinued hydralazine. 3. Hypertension. Hydralazine was resumed at lower dose of 25 mg twice daily subsequently discontinued by cardiology. 4. Hyperlipidemia. Continue pravastatin 40 mg daily. 5. Hypothyroidism. Continue levothyroxine 75 g daily. TSH pending. 6. Dementia. Continue Aricept 10 mg at bedtime. 7. Generalized anxiety disorder. Continue Xanax 0.25 mg daily, Celexa 20 mg daily. 8. Chronic constipation. 9. Gastroesophageal reflux disease. Continue omeprazole 20 mg daily. Patient will be admitted to the hospital for a minimum of 2 night stay. DISCHARGE PLAN Most likely return home. Impression and plan of care have been directed as dictated by the signing physician. Delicia Almendarez nurse practitioner acting as scribe for signing physician. Past Medical History Past Medical History: Dementia, Hyperlipidemia, Thyroid Disorder Additional Past Medical History / Comment(s): A&O to 1 at baseline History of Any Multi-Drug Resistant Organisms: None Reported Past Surgical History: Appendectomy Additional Past Surgical History / Comment(s): VEIN STRIPPING Past Psychological History: No Psychological Hx Reported Smoking Status: Never smoker Past Alcohol Use History: Rare Past Drug Use History: None Reported Medications and Allergies Home Medications Medication Instructions Recorded Confirmed Type Citalopram Hydrobromide [CeleXA] 20 mg PO DAILY 11/06/19 11/14/21 History Donepezil HCl [Aricept] 10 mg PO HS 11/06/19 11/14/21 History Levothyroxine Sodium [Synthroid] 75 mcg PO DAILY 11/06/19 11/14/21 History Pravastatin Sodium [Pravachol] 40 mg PO DAILY 11/06/19 11/14/21 History ALPRAZolam [Xanax] 0.25 mg PO DAILY PRN 11/14/21 11/14/21 History Cholecalciferol (Vitamin D3) 125 mcg PO Q48H 11/14/21 11/14/21 History [Vitamin D3 (125 MCG = 5,000 IU)] Cyanocobalamin (Vitamin B-12) 5,000 mcg PO DAILY 11/14/21 11/14/21 History [Vitamin B-12] Fluticasone Nasal [place] [Flonase 1 spray EA NOSTRIL DAILY 11/14/21 11/14/21 History Nasal [place]] Ginkgo Biloba 120mg 120 mg PO DAILY 11/14/21 11/14/21 History Memantine [Namenda] 10 mg PO BID 11/14/21 11/14/21 History Naproxen Sodium [Aleve] 220 mg PO DAILY PRN 11/14/21 11/14/21 History Omeprazole 20 mg PO DAILY 11/14/21 11/14/21 History Psyllium Husk 100% [Metamucil 6 gm PO DAILY 11/14/21 11/14/21 History Packet] bisacodyL [Dulcolax] 5 mg PO Q48H 11/14/21 11/14/21 History hydrALAZINE HCL [Apresoline] 50 mg PO BID 11/14/21 11/14/21 History Allergies Allergy/AdvReac Type Severity Reaction Status Date / Time No Known Allergies Allergy Verified 11/14/21 14:17 Physical Exam Vitals: Vital Signs Temp Pulse Pulse Resp BP BP Pulse Ox 11/15/21 04:00 98.0 F 64 18 110/75 96 11/15/21 02:00 78 18 11/15/21 00:00 98.1 F 78 18 106/70 96 11/14/21 20:00 98.4 F 90 18 114/77 95 11/14/21 18:32 65 18 120/73 96 11/14/21 16:59 56 L 18 147/82 94 L 11/14/21 14:06 64 18 138/76 94 L 11/14/21 12:56 97.9 F 60 18 138/76 Intake and Output 11/14/21 11/15/21 11/15/21 22:59 06:59 14:59 Other: Voiding Method Toilet Toilet # Voids 2 Weight 70.76 kg Results CBC & Chem 7: 11/14/21 13:06 11/14/21 13:06 Labs: Abnormal Lab Results - Last 24 Hours (Table) 11/14/21 11/14/21 11/14/21 Range/Units 13:06 13:06 13:06 Lymphocytes # 0.7 L (1.0-4.8) k/uL APTT 20.4 L (22.0-30.0) sec Sodium 129 L (137-145) mmol/L Chloride 97 L (98-107) mmol/L Glucose 120 H (74-99) mg/dL POC Glucose (mg/dL) (75-99) mg/dL Total Protein 6.2 L (6.3-8.2) g/dL 11/14/21 Range/Units 13:07 Lymphocytes # (1.0-4.8) k/uL APTT (22.0-30.0) sec Sodium (137-145) mmol/L Chloride (98-107) mmol/L Glucose (74-99) mg/dL POC Glucose (mg/dL) 121 H (75-99) mg/dL Total Protein (6.3-8.2) g/dL Thrombosis Risk Factor Assmnt - Choose All That Apply Any of the Below Risk Factors Present?: Yes Other Risk Factors: Yes Each Risk Factor Represents 3 Points: Age 75 years or older Other congenital or acquired thrombophilia - If yes, enter type in comment: No Thrombosis Risk Factor Assessment Total Risk Factor Score: 3 Thrombosis Risk Factor Assessment Level: Moderate Risk
[2021-11-15] MEDS: amLODIPine 5 MG TAB PO SCH (15:46)
[2021-11-15] MEDS: FLUTICASONE 50MCG/SPRAY NASAL 16GM EA NOSTRIL SCH (15:46)
--- NOTE | 2021-11-15 17:45 | EEG ---
ELECTROENCEPHALOGRAM REPORT DATE OF SERVICE: 11/15/2021. CLINICAL HISTORY: This is an 86-year-old woman who presented to the hospital because a syncopal episode. The video EEG is obtained to evaluate for seizure epileptiform activity. RELEVANT MEDICATION: The patient is not on any antiepileptic drugs. EEG TYPE: A routine 21-channel EEG is performed with video using the 10/20 electrode placement system. DESCRIPTION: Only wakefulness is obtained. During awake state the posterior-dominant rhythm consists of 8 to 8.5 hertz activity that is well modulated and well sustained. There is no physiological stage II sleep architecture. There is no focal slowing. Interictal and ictal is none. ACTIVATION PROCEDURE: Photic stimulation and hyperventilation are not performed. CLINICAL INTERPRETATION: This is a normal routine EEG. There is no focal slowing, epileptiform discharge or seizure on the EEG. Clinical correlation is recommended. INNA / DESTINY: [id number] / MTDD
[2021-11-15] MEDS: DONEPEZIL 10 MG TAB PO SCH (20:02)
[2021-11-16] MEDS: LEVOTHYROXINE 75 MCG TAB PO SCH (06:07)
--- NOTE | 2021-11-16 08:45 | P.DS ---
Providers Date of admission: 11/14/21 18:13 Expected date of discharge: 11/16/21 Attending physician: Eduar Dover Consults: 11/14/21 18:13 Consult Physician Urgent Consulting Provider: [facility] Reason/Comments: Syncope Do you want consulting provider notified?: Yes 11/15/21 08:47 Consult Physician Routine Consulting Provider: Prashant Bell Reason/Comments: syncope Do you want consulting provider notified?: Yes Primary care physician: James Warren [facility] Course: HISTORY OF PRESENT ILLNESS This is an 86-year-old female patient of Dr. James Warren with past medical history of hypertension, hyperlipidemia, hypothyroidism, dementia, generalized anxiety disorder, chronic constipation, gastroesophageal reflux disease. Unable to obtain history from the patient due to her mental status and underlying dementia. Patient apparently had a syncopal episode at home that lasted about 5 minutes and her mental status seemed to be off according to daughter. Patient denies any complaints of headache or pain. Patient was found to be afebrile, heart rate 60, blood pressure 138/76, pulse ox 94%. EKG sinus bradycardia with no acute ST changes. site monitor sinus rhythm. CAT scan of the brain showed no acute abnormality. Chest x-ray shows no acute abnormality. CBC within normal limits. Sodium 129, potassium 3.9, chloride 97, CO2 23, BUN 13 and creatinine 0.83. Blood sugar 120. Liver function tests are normal. Troponin negative. Urinalysis negative. Patient was seen by cardiology and recommended holding hydralazine, echocardiogram and monitor telemetry. Patient was seen by neurology ordered EEG and if normal along with orthostatics, patient is cleared by neurology for discharge. Echocardiogram reveals normal left atrial size and function, mild atrial enlargement, dilated aortic root measuring 4.2 cm with mild aortic regurgitation, mild mitral regurgitation. Patient admitted to the cardiac stepdown unit. Blood pressure medications adjusted. 11/16: Patient is awake and alert, daughter is at bedside. She is not had any further syncopal episodes, no lightheadedness or dizziness. Orthostatic vital signs were negative. She has been seen by cardiology and blood pressure medication hydralazine discontinued and patient started on amlodipine. Patient's been seen by neurology. EEG came back normal. No further workup was recommended and patient was cleared for discharge by consultants. Patient will be discharged home today in stable condition. DISCHARGE DIAGNOSES 1. Syncopal episode most likely secondary to hypotension. 2. Hypotension. 3. Hypertension. 4. Hyperlipidemia. 5. Hypothyroidism. 6. Dementia. 7. Generalized anxiety disorder. 8. Chronic constipation. 9. Gastroesophageal reflux disease. DISCHARGE PLAN Home with daughter. Greater than 35 minutes was utilized and coordinating patient's discharge. Impression and plan of care have been directed as dictated by the signing physician. Delicia Almendarez nurse practitioner acting as scribe for signing physician. Plan - Discharge Summary Discharge Rx Participant: No New Discharge Prescriptions: New amLODIPine [Norvasc] 5 mg PO DAILY #30 tab polyethylene glycoL 3350 [Miralax] 17 gm PO DAILY #30 packet Continue Pravastatin Sodium [Pravachol] 40 mg PO DAILY Levothyroxine Sodium [Synthroid] 75 mcg PO DAILY Citalopram Hydrobromide [CeleXA] 20 mg PO DAILY Donepezil HCl [Aricept] 10 mg PO HS Memantine [Namenda] 10 mg PO BID ALPRAZolam [Xanax] 0.25 mg PO DAILY PRN PRN Reason: Anxiety Psyllium Husk 100% [Metamucil Packet] 6 gm PO DAILY Naproxen Sodium [Aleve] 220 mg PO DAILY PRN PRN Reason: Pain Cholecalciferol (Vitamin D3) [Vitamin D3 (125 MCG = 5,000 IU)] 125 mcg PO Q48H Ginkgo Biloba 120mg 120 mg PO DAILY Fluticasone Nasal [place] [Flonase Nasal [place]] 1 spray EA NOSTRIL DAILY Omeprazole 20 mg PO DAILY Cyanocobalamin (Vitamin B-12) [Vitamin B-12] 5,000 mcg PO DAILY bisacodyL [Dulcolax] 5 mg PO Q48H Discontinued hydrALAZINE HCL [Apresoline] 50 mg PO BID Discharge Medication List Citalopram Hydrobromide [CeleXA] 20 mg PO DAILY 11/06/19 [History] Donepezil HCl [Aricept] 10 mg PO HS 11/06/19 [History] Levothyroxine Sodium [Synthroid] 75 mcg PO DAILY 11/06/19 [History] Pravastatin Sodium [Pravachol] 40 mg PO DAILY 11/06/19 [History] ALPRAZolam [Xanax] 0.25 mg PO DAILY PRN 11/14/21 [History] Cholecalciferol (Vitamin D3) [Vitamin D3 (125 MCG = 5,000 IU)] 125 mcg PO Q48H 11/14/21 [History] Cyanocobalamin (Vitamin B-12) [Vitamin B-12] 5,000 mcg PO DAILY 11/14/21 [History] Fluticasone Nasal [place] [Flonase Nasal [place]] 1 spray EA NOSTRIL DAILY 11/14/21 [History] Ginkgo Biloba 120mg 120 mg PO DAILY 11/14/21 [History] Memantine [Namenda] 10 mg PO BID 11/14/21 [History] Naproxen Sodium [Aleve] 220 mg PO DAILY PRN 11/14/21 [History] Omeprazole 20 mg PO DAILY 11/14/21 [History] Psyllium Husk 100% [Metamucil Packet] 6 gm PO DAILY 11/14/21 [History] bisacodyL [Dulcolax] 5 mg PO Q48H 11/14/21 [History] amLODIPine [Norvasc] 5 mg PO DAILY #30 tab 11/16/21 [Rx] polyethylene glycoL 3350 [Miralax] 17 gm PO DAILY #30 packet 11/16/21 [Rx] Follow up Appointment(s)/Referral(s): Nicholas Hi MD [STAFF PHYSICIAN] - 6 Weeks James Warren MD [Primary Care Provider] - 1 Week Activity/Diet/Wound Care/Special Instructions: Please go to [facility] office on [address] to tack picker your 30-day event monitor after you're discharged. Discharge Disposition: HOME SELF-CARE
--- NOTE | 2021-11-16 09:01 | P.PN ---
Subjective Progress Note Date: 11/16/21 The patient is seen at bedside and feels is doing well. No further syncopal episodes. Objective - Vital Signs Vital signs: Vital Signs Temp 98.4 F 11/16/21 04:00 Pulse 68 11/16/21 04:00 Resp 18 11/16/21 04:00 BP 155/90 11/16/21 04:00 Pulse Ox 95 11/16/21 04:00 FiO2 Intake & Output 11/15/21 11/16/21 11/16/21 18:59 06:59 18:59 Intake Total 476 Balance 476 Intake: Oral 476 Other: Voiding Method Toilet Toilet # Voids 3 1 - Exam GENERAL: The patient is lying in bed and is not in acute distress. NEUROLOGICAL: Higher mental function: The patient is awake, alert, oriented to self and stated was in hospital. Upon asking the year she had a pause and look at the board and read it was 2021. Patient is following simple commands. No aphasia and no neglect. Cranial nerves: The pupils are round, equal and reactive to light and accommodation. Visual sellers are full to confrontation throughout. Extraocular movement is intact no nystagmus is noted. Facial sensation is normal to touch throughout. The facial strength is normal throughout. Hearing is mildly decreased bilaterally to hand rub. Tongue is midline and moved [id number] without any difficulty. No dysarthria is noted. Shoulder shrug is normal bilaterally. Motor: The strength is 5 over 5 throughout. Normal tone and bulk. Cerebellum: Normal finger to nose bilaterally. Sensation: Sensation is normal to touch throughout. Reflexes (right/left): 1+ throughout. Plantars are downgoing bilaterally. Some other workup in our facility during this hospital visit consisted of: CT of the head is reported as cerebral atrophy and extensive chronic small vessel ischemia. No acute intracranial abnormality. No change. EKG is reported as sinus bradycardia with a ventricular rate of 55. Prolonged QT interval with the QT/QTC is 516 07/14/2003. Routine EEG: Normal. There is no focal slowing, epileptiform discharges or seizure on the EEG. 2Decho: Normal left ventricular size and function. Mild left atrial enlargement. Dilated root, measuring about 4.2cm with mild aortic regurgitation. - Labs CBC & Chem 7: 11/14/21 13:06 11/14/21 13:06 Labs: Abnormal Lab Results - Last 24 Hours (Table) 11/14/21 Range/Units 13:06 Cholesterol 205.00 H (0.00-200.00) mg/dL HDL Cholesterol 70.60 H (40.00-60.00) mg/dL Assessment and Plan Assessment: Syncopal episode seems more cardiogenic (blood pressure as low as 80's reported by EMS, bradycardiac, prolonged QT interval). Unlikely seizure Reported dementia Dilated aortic root on 2D echo with mild aortic regurgitation Hypertension Hyperlipidemia Anxiety Plan: Orthostatic are negative. EEG: Normal. CT head is no acute abnormality. There is no further neurological work-up. Cardiology team is on board. We'll defer the rest of medical management to primary team. Patient is clear for discharge from neurological perspective. Will sign off. Please reconsult if needed. Prashant Bell M.D. Neuro-Hospitalist Time with Patient: Less than 30
[2021-11-16] MEDS: CITALOPRAM HYDROBROMIDE 20 MG TAB PO SCH (10:26)
[2021-11-16] MEDS: PRAVASTATIN SODIUM 40 MG TAB PO SCH (10:26)
[2021-11-16] MEDS: amLODIPine 5 MG TAB PO SCH (10:26)
[2021-11-16] MEDS: MEMANTINE 10 MG TAB PO SCH (10:26)
[2021-11-16] MEDS: CYANOCOBALAMIN 500 MCG TAB PO SCH (10:26)
[2021-11-16] MEDS: FLUTICASONE 50MCG/SPRAY NASAL 16GM EA NOSTRIL SCH (10:27)
[2021-11-16] MEDS: PANTOPRAZOLE 40 MG TABLET PO SCH (10:27)
[2021-11-16] MEDS: PSYLLIUM HUSK 100% 6 GM PACKET PO SCH (10:27)
--- NOTE | 2021-11-16 11:44 | P.PN ---
Subjective This is a pleasant 86-year-old female past medical history significant for hypertension, dyslipidemia, dementia, hypothyroidism . 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 We have been asked to see in consultation for syncope. Patient presents to the ER, she states she is confused on what happened, she cannot remember if she passed out or not. She is alert and oriented to person. Per EMS, patient had a syncopal episode at home and apparently passed out at home for approximately 5 minutes. Patient denies any warning signs. She denies any lightheadedness, dizziness, weakness, headache, chest pain, shortness of breath, nausea, vomiting, abdominal pain. Per the EMS report patient's blood pressure was low with a systolic in the 80s. She was given a bolus of normal saline and her blood pressure improved. Patient denies any history of CAD, arrhythmia, syncopal episodes in the past, diabetes, stroke, [place]. She denies any tobacco use. DIAGNOSTICS EKG reveals sinus bradycardia, heart rate 55, nonspecific T-wave abnormalities, no acute ischemia. QTC 504 Telemetry tracings indicate sinus mechanism with heart rate in the 50s60s, no significant bradycardia noted, no pauses or arrhythmia noted. Patient underwent a stress echo test in 2017 which was negative for stress induced ischemia Chest xray mild scarring in subsegmental atelectasis at the left lung base. No acute heart failure or cardiopulmonary process Brain CT performed revealed cerebral atrophy and extensive chronic small vessel ischemic change. No acute intracranial abnormality. No change 11/16/2021 Patient seen and examined at bedside, no acute distress. She denies any further dizziness, lightheadedness. She denies any shortness of breath or chest pain. Telemetry reviewed patient is maintaining sinus mechanism with heart rate in the 50s60s. No stenotic a bradycardia arrhythmia noted. Her blood pressure was elevated yesterday and started on amlodipine 5 mg daily. She is tolerating this medication. Echocardiogram revealed normal left ventricular size, mild wall thickness, systolic function is normal. No significant wall motion abnormalities. Dilated, measuring about 4.2 cm with mild aortic regurgitation PHYSICAL EXAMINATION Vitals reviewed. CONSTITUTIONAL: No apparent distress. HEENT: Neck Supple. No JVD. No carotid bruit. CHEST EXAMINATION: Lungs are clear to auscultation. No chest wall tenderness is noted on palpation or with deep breathing. HEART EXAMINATION: Regular rate and rhythm. S1, S2 heard. No murmurs, gallops or rub. ABDOMEN: Soft, nontender. Positive bowel sounds. EXTREMITIES: 2+ peripheral pulses, no lower extremity edema and no calf tenderness. NEUROLOGIC EXAMINATION: Patient is awake, alert and oriented x1 ASSESSMENT Possible syncopal episode at home, possibly related to hypotension, unclear etiology at this time Hypotension History of hypertension Dementia Dyslipidemia Hypothyroidism Hyponatremia PLAN Discontinue Hydralazine Continue amlodipine 10 mg daily Recommend 30 day event monitor will be placed in the office. Patient to present to the outpatient office after discharge to have her event monitor placed. Discussed with patient and daughter Cardiology perspective, patient stable to be discharged home. Follow up outpatient with Dr. Hi Nurse practitioner note has been reviewed by physician. Signing provider agrees with the documented findings, assessment, and plan of care. Objective - Vital Signs Vital signs: Vital Signs Temp 98.2 F 11/16/21 08:00 Pulse 61 11/16/21 08:00 Resp 18 11/16/21 08:00 BP 125/88 11/16/21 08:00 Pulse Ox 95 11/16/21 08:00 FiO2 Intake & Output 11/15/21 11/16/21 11/16/21 18:59 06:59 18:59 Intake Total 476 Balance 476 Intake: Oral 476 Other: Voiding Method Toilet Toilet Toilet # Voids 3 1 - Labs CBC & Chem 7: 11/14/21 13:06 11/14/21 13:06
[2021-11-16 13:42] VITALS: BP 120/74; PULSE 66; TEMP 98
== END 2021-11-16 13:15 | disposition home or self-care (01) | DRG 315 ==
LOC: EC 12:54 → 3SCARD 18:13
PROVIDERS: ADMIT Internal Medicine Geriatric Medicine; ATTEND Internal Medicine Geriatric Medicine
DX: I95.9 Hypotension, unspecified (principal); E87.1 Hypo-osmolality and hyponatremia; F02.80 Dementia in other diseases classified elsewhere, unspecified severity, without behavioral disturbance, psychotic disturbance, mood disturbance, and anxiety; G31.9 Degenerative disease of nervous system, unspecified; I77.819 Aortic ectasia, unspecified site; Z28.310 Unvaccinated for COVID-19; I10 Essential (primary) hypertension; R00.1 Bradycardia, unspecified; I08.0 Rheumatic disorders of both mitral and aortic valves; E78.5 Hyperlipidemia, unspecified; E03.9 Hypothyroidism, unspecified; F41.1 Generalized anxiety disorder; K59.09 Other constipation; K21.9 Gastro-esophageal reflux disease without esophagitis; R94.31 Abnormal electrocardiogram [ECG] [EKG]; Z79.890 Hormone replacement therapy; Z79.899 Other long term (current) drug therapy; Z90.49 Acquired absence of other specified parts of digestive tract; Z87.19 Personal history of other diseases of the digestive system; Z86.79 Personal history of other diseases of the circulatory system; Z98.890 Other specified postprocedural states
CPT/HCPCS: 36415; 70450; 71046; 80053; 80061; 81003; 83735; 84443; 84484; 85025; 85610; 85730; 93005; 93306; 94760; 95816; 96374; 99285

== ENCOUNTER 2023-06-13 13:48 | Emergency (ER) | payer MEDICARE ==
[2023-06-13 13:58] VITALS: RESP 18
--- NOTE | 2023-06-13 14:26 | ED ---
Dizziness HPI - General Chief Complaint: Syncope Stated Complaint: syncope Time Seen by Provider: 06/13/23 13:57 Source: patient, family, EMS, RN notes reviewed Mode of arrival: EMS Limitations: no limitations - History of Present Illness Initial Comments: Patient an 88-year-old female presented ER via EMS with a chief complaint of syncope. Family and caregiver are providing HPI. According to caregiver they were at the kitchen table to making a puzzle when a song came on patient wanted to [facility]. He stood up and move her feet until the end of the song. Upon sitting down caregiver reports that patient passed out and her arms felt her side. Denies any head injury or seizure like activity. Caregiver does report that her lips started to turn blue and she was out for probably about 5 minutes. Caregiver called EMS. Patient does have a past medical history significant for dementia and thyroid. - Related Data Home Medications Medication Instructions Recorded Confirmed Citalopram Hydrobromide [CeleXA] 20 mg PO DAILY 11/06/19 06/13/23 Levothyroxine Sodium [Synthroid] 75 mcg PO DAILY 11/06/19 06/13/23 Pravastatin Sodium [Pravachol] 40 mg PO DAILY 11/06/19 06/13/23 Fluticasone Nasal [place] [Flonase 1 spr EA NOSTRIL DAILY 11/14/21 06/13/23 Nasal [place]] Memantine [Namenda] 10 mg PO BID 11/14/21 06/13/23 Omeprazole 20 mg PO DAILY 11/14/21 06/13/23 Donepezil 23mg 23 mg PO DAILY 06/13/23 06/13/23 amLODIPine [Norvasc] 2.5 mg PO DAILY 06/13/23 06/13/23 Allergies Allergy/AdvReac Type Severity Reaction Status Date / Time No Known Allergies Allergy Verified 06/13/23 17:45 Review of Systems ROS Statement: Those systems with pertinent positive or pertinent negative responses have been documented in the HPI. ROS Other: All systems not noted in ROS Statement are negative. Past Medical History Past Medical History: Dementia, Hyperlipidemia, Thyroid Disorder Additional Past Medical History / Comment(s): A&O to 1 at baseline History of Any Multi-Drug Resistant Organisms: None Reported Past Surgical History: Appendectomy Additional Past Surgical History / Comment(s): VEIN STRIPPING Past Psychological History: No Psychological Hx Reported Smoking Status: Never smoker Past Alcohol Use History: Rare Past Drug Use History: None Reported General Exam Limitations: no limitations General appearance: alert, in no apparent distress Head exam: Present: atraumatic, normocephalic, normal inspection Eye exam: Present: normal appearance, PERRL, EOMI. Absent: scleral icterus, conjunctival injection, periorbital swelling Respiratory exam: Present: normal lung sounds bilaterally. Absent: respiratory distress, wheezes, rales, rhonchi, stridor Cardiovascular Exam: Present: regular rate, normal rhythm, normal heart sounds. Absent: systolic murmur, diastolic murmur, rubs, gallop, clicks GI/Abdominal exam: Present: soft, normal bowel sounds. Absent: distended, tenderness, guarding, rebound, rigid Extremities exam: Present: normal inspection, full ROM, normal capillary refill. Absent: tenderness, pedal edema, joint swelling, calf tenderness Neurological exam: Present: alert, oriented X3, CN II-XII intact Psychiatric exam: Present: normal affect, normal mood Skin exam: Present: warm, dry, intact, normal color. Absent: rash Course Vital Signs 06/13/23 06/13/23 06/13/23 13:54 13:56 16:02 Temperature 98.5 F 98 F Pulse Rate 55 L Pulse Rate [ 56 L 53 L Pulse Oximetery ] Respiratory 18 18 Rate Blood Pressure 131/85 Blood Pressure 133/75 [Right Arm Sitting] Blood Pressure 131/86 [Right Arm Standing] Blood Pressure 108/66 [Right Arm Supine] O2 Sat by Pulse 95 98 Oximetry Medical Decision Making - Medical Decision Making Was pt. sent in by a medical professional or institution (, PA, [employer], urgent care, hospital, or fpc...) When possible be specific @ -No Did you speak to anyone other than the patient for history (EMS, parent, family, police, friend...)? What history was obtained from this source @ -No Did you review nursing and triage notes (agree or disagree)? Why? @ -I reviewed and agree with nursing and triage notes Were old charts reviewed (outside hosp., previous admission, EMS record, old EKG, old radiological studies, urgent care reports/EKG's, fpc records)? Report findings @ -No old charts were reviewed Differential Diagnosis (chest pain, altered mental status, abdominal pain women, abdominal pain men, vaginal bleeding, weakness, fever, dyspnea, syncope, headache, dizziness, GI bleed, back pain, seizure, CVA, palpatations, mental health, musculoskeletal)? @ -Differential Syncope: Valvular disease, hypertrophic cardiomyopathy, pulmonary embolism, tamponade, tachycardia, bradycardia, NV, hypovolemia, hemorrhage, dissection, anemia, intracranial hemorrhage, seizure, hypoglycemia, carbon monoxide poisoning, this is not meant to be an all-inclusive list. EKG interpreted by me (3pts min.). @ -As above X-rays interpreted by me (1pt min.). @ -Chest x-ray interpreted by me shows no acute process. CT interpreted by me (1pt min.). @ -None done U/S interpreted by me (1pt. min.). @ -None done What testing was considered but not performed or refused? (CT, X-rays, U/S, labs)? Why? @ -None What meds were considered but not given or refused? Why? @ -None Did you discuss the management of the patient with other professionals (professionals i.e. , PA, [employer], lab, RT, psych nurse, social media intern, patient safety sitter, teacher, emergency communications officer, case fitter)? Give summary @ -No Was smoking cessation discussed for >3mins.? @ -No Was critical care preformed (if so, how long)? @ -No Were there social determinants of health that impacted care today? How? (Homelessness, low income, unemployed, alcoholism, drug addiction, transportation, low edu. Level, literacy, decrease access to med. care, longterm, rehab)? @ -No Was there de-escalation of care discussed even if they declined (Discuss DNR or withdrawal of care, Hospice)? DNR status @ -No What co-morbidities impacted this encounter? (DM, HTN, Smoking, COPD, CAD, Cancer, CVA, ARF, Chemo, Hep., AIDS, mental health diagnosis, sleep apnea, morbid obesity)? @ -Dementia, thyroid disorder Was patient admitted / discharged? Hospital course, mention meds given and route, prescriptions, significant lab abnormalities, going to OR and other pert inent info. @ -Discharge. Patient is an 88-year-old female presented ER with chief complaint of syncopal episode. Vitals significant for bradycardia at 55 bpm, otherwise stable. Labs obtained in the ER were unremarkable. Cephid negative. Urinalysis showed trace protein and some blood. Orthostatic blood pressures had an appropriate response. Chest x-ray interpreted by me negative for acute process. EKG showed sinus bradycardia no evidence of acute infarct or ischemia. I discussed lab and imaging results with the patient and family at bedside. I advised them to increase hydration and to change positions slowly. I suggested a follow-up with PCP in the next 1-2 days. Return parameters were discussed. Patient be discharged in stable condition with follow-up to PCP. Patient and family expressed understanding and agreement with care plan. Undiagnosed new problem with uncertain prognosis? @ -No Drug Therapy requiring intensive monitoring for toxicity (Heparin, Nitro, Insulin, Cardizem)? @ -No Were any procedures done? @ -No Diagnosis/symptom? @ -Syncope Acute, or Chronic, or Acute on Chronic? @ -Acute Uncomplicated (without systemic symptoms) or Complicated (systemic symptoms)? @ -Uncomplicated Side effects of treatment? @ -No Exacerbation, Progression, or Severe Exacerbation? @ -No Poses a threat to life or bodily function? How? (Chest pain, USA, NV, pneumonia, PE, COPD, DKA, ARF, appy, cholecystitis, CVA, Diverticulitis, Homicidal, Suicidal, threat to staff... and all critical care pts) @ -No - Lab Data Result diagrams: 06/13/23 14:45 06/13/23 14:45 Lab Results 06/13/23 06/13/23 06/13/23 Range/Units 14:45 14:45 14:45 WBC 8.2 (3.8-10.6) k/uL RBC 4.73 (3.80-5.40) m/uL Hgb 14.7 (11.4-16.0) gm/dL Hct 45.1 (34.0-46.0) % MCV 95.5 (80.0-100.0) fL MCH 31.2 (25.0-35.0) pg MCHC 32.6 (31.0-37.0) g/dL RDW 12.2 (11.5-15.5) % Plt Count 231 (150-450) k/uL MPV 7.3 Sodium 135 L (137-145) mmol/L Potassium 4.3 (3.5-5.1) mmol/L Chloride 96 L (98-107) mmol/L Carbon Dioxide 30 (22-30) mmol/L Anion Gap 9 mmol/L BUN 19 H (7-17) mg/dL Creatinine 0.85 (0.52-1.04) mg/dL Est GFR (CKD-EPI)AfAm 71 (>60 ml/min/1.73 sqM) Est GFR (CKD-EPI)NonAf 62 (>60 ml/min/1.73 sqM) Glucose 92 (74-99) mg/dL Calcium 9.1 (8.4-10.2) mg/dL Phosphorus 4.2 (2.5-4.5) mg/dL Magnesium 2.2 (1.6-2.3) mg/dL Total Bilirubin 1.0 (0.2-1.3) mg/dL AST 27 (14-36) U/L ALT 17 (4-34) U/L Alkaline Phosphatase 85 (38-126) U/L Troponin I (0.000-0.034) ng/mL Total Protein 6.7 (6.3-8.2) g/dL Albumin 4.1 (3.5-5.0) g/dL TSH 2.610 (0.465-4.680) mIU/L Urine Color Urine Appearance (Clear) Urine pH (5.0-8.0) Ur Specific [place] (1.001-1.035) Urine Protein (Negative) Urine Glucose (UA) (Negative) Urine Ketones (Negative) Urine Blood (Negative) Urine Nitrite (Negative) Urine Bilirubin (Negative) Urine Urobilinogen (<2.0) mg/dL Ur Leukocyte Esterase (Negative) Urine RBC (0-5) /hpf Urine WBC (0-5) /hpf Ur Squamous Epith Cells (0-4) /hpf Urine Bacteria (None) /hpf Urine Mucus (None) /hpf Influenza Type A (PCR) Not Detected (Not Detectd) Influenza Type B (PCR) Not Detected (Not Detectd) RSV (PCR) Not Detected (Not Detectd) SARS-CoV-2 (PCR) Not Detected (Not Detectd) 06/13/23 06/13/23 Range/Units 15:00 17:23 WBC (3.8-10.6) k/uL RBC (3.80-5.40) m/uL Hgb (11.4-16.0) gm/dL Hct (34.0-46.0) % MCV (80.0-100.0) fL MCH (25.0-35.0) pg MCHC (31.0-37.0) g/dL RDW (11.5-15.5) % Plt Count (150-450) k/uL MPV Sodium (137-145) mmol/L Potassium (3.5-5.1) mmol/L Chloride (98-107) mmol/L Carbon Dioxide (22-30) mmol/L Anion Gap mmol/L BUN (7-17) mg/dL Creatinine (0.52-1.04) mg/dL Est GFR (CKD-EPI)AfAm (>60 ml/min/1.73 sqM) Est GFR (CKD-EPI)NonAf (>60 ml/min/1.73 sqM) Glucose (74-99) mg/dL Calcium (8.4-10.2) mg/dL Phosphorus (2.5-4.5) mg/dL Magnesium (1.6-2.3) mg/dL Total Bilirubin (0.2-1.3) mg/dL AST (14-36) U/L ALT (4-34) U/L Alkaline Phosphatase (38-126) U/L Troponin I <0.012 (0.000-0.034) ng/mL Total Protein (6.3-8.2) g/dL Albumin (3.5-5.0) g/dL TSH (0.465-4.680) mIU/L Urine Color Yellow Urine Appearance Cloudy H (Clear) Urine pH 6.0 (5.0-8.0) Ur Specific [place] 1.028 (1.001-1.035) Urine Protein Trace H (Negative) Urine Glucose (UA) Negative (Negative) Urine Ketones Negative (Negative) Urine Blood Negative (Negative) Urine Nitrite Negative (Negative) Urine Bilirubin Negative (Negative) Urine Urobilinogen 2.0 (<2.0) mg/dL Ur Leukocyte Esterase Negative (Negative) Urine RBC 7 H (0-5) /hpf Urine WBC 4 (0-5) /hpf Ur Squamous Epith Cells 19 H (0-4) /hpf Urine Bacteria Rare H (None) /hpf Urine Mucus Many H (None) /hpf Influenza Type A (PCR) (Not Detectd) Influenza Type B (PCR) (Not Detectd) RSV (PCR) (Not Detectd) SARS-CoV-2 (PCR) (Not Detectd) - EKG Data -: EKG Interpreted by Me EKG Comments: EKG taken at 14:04 shows sinus bradycardia with no acute ST segment or T-wave abnormalities. Ventricular rate 57, KS interval 199, QRS duration 87, QT/QTC 457/452. - Radiology Data Radiology results: report reviewed, image reviewed Disposition Clinical Impression: Syncope Disposition: HOME SELF-CARE Condition: Stable Instructions (If sedation given, give patient instructions): Syncope (ED) Additional Instructions: Please follow-up with primary care physician. Return to ER for any new or worsening symptoms. Is patient prescribed a controlled substance at d/c from ED?: No Referrals: James Warren MD [Primary Care Provider] - 1-2 days Time of Disposition: 17:56
[2023-06-13 14:56] LABS: HCT 45.1 % (34.0-46.0); HGB 14.7 gm/dL (11.4-16.0); MCH 31.2 pg (25.0-35.0); MCHC 32.6 g/dL (31.0-37.0); MCV 95.5 fL (80.0-100.0); Mean Platelet Volume 7.3; Platelet Count 231 k/uL (150-450); RBC 4.73 m/uL (3.80-5.40); RDW 12.2 % (11.5-15.5); WBC 8.2 k/uL (3.8-10.6)
--- NOTE | 2023-06-13 15:00 | XR ---
EXAMINATION TYPE: XR chest 2V DATE OF EXAM: 06/13/2023 COMPARISON: 11/14/2021 INDICATION: Syncope TECHNIQUE: Frontal and lateral views of the chest are obtained. FINDINGS: The heart size is normal. The pulmonary vasculature is normal. The lungs are clear. IMPRESSION: 1. No acute pulmonary process.
[2023-06-13 15:21] LABS: ALT 17 U/L (4-34); AST 27 U/L (14-36); African American GFR (CKD) 71 (>60 ml/min/1.73 sqM); Albumin 4.1 g/dL (3.5-5.0); Alkaline Phosphatase 85 U/L (38-126); Anion Gap 9 mmol/L; Blood Urea Nitrogen 19 mg/dL (7-17); Calcium 9.1 mg/dL (8.4-10.2); Carbon Dioxide 30 mmol/L (22-30); Chloride 96 mmol/L (98-107); Glucose 92 mg/dL (74-99); Magnesium 2.2 mg/dL (1.6-2.3); Non-African American GFR(CKD) 62 (>60 ml/min/1.73 sqM); Phosphorus 4.2 mg/dL (2.5-4.5); Potassium 4.3 mmol/L (3.5-5.1); Sodium 135 mmol/L (137-145); Total Protein 6.7 g/dL (6.3-8.2)
[2023-06-13 16:19] VITALS: TEMP 98
[2023-06-13 17:44] LABS: Appearance,Urine Cloudy (Clear); Bacteria,Urine Rare /hpf; Bilirubin,Urine Negative (Negative); Blood,Urine Negative (Negative); Color,Urine Yellow; Glucose,Urine (UA) Negative (Negative); Ketones,Urine Negative (Negative); Leukocyte Esterase,Urine Negative (Negative); Mucus,Urine Many /hpf; Nitrite,Urine Negative (Negative); Protein,Urine Trace (Negative); RBC,Urine 7 /hpf (0-5); Specific Gravity,Urine 1.028 (1.001-1.035); Squamous Epithelial Cell,Urine 19 /hpf (0-4); WBC,Urine 4 /hpf (0-5)
[2023-06-13 18:30] VITALS: BP 130/78; PULSE 78
== END 2023-06-13 18:18 | disposition home or self-care (01) ==
LOC: EC 13:48
DX: R55 Syncope and collapse (principal); R00.1 Bradycardia, unspecified; E07.9 Disorder of thyroid, unspecified; E78.5 Hyperlipidemia, unspecified; F03.90 Unspecified dementia, unspecified severity, without behavioral disturbance, psychotic disturbance, mood disturbance, and anxiety; Z20.822 Contact with and (suspected) exposure to COVID-19; Z79.890 Hormone replacement therapy; Z79.899 Other long term (current) drug therapy
CPT/HCPCS: 36415; 71046; 80053; 81001; 83735; 84100; 84443; 84484; 85027; 87636; 93005; 99285

== ENCOUNTER 2023-08-26 20:43 | Emergency (ER) | payer MEDICARE ==
--- NOTE | 2023-08-26 21:48 | ED ---
CPR HPI - General Chief Complaint: Neuro Symptoms/Deficit Stated Complaint: TIA Time Seen by Provider: 08/26/23 21:09 Source: EMS, RN notes reviewed, old records reviewed Mode of arrival: EMS Limitations: altered mental status, physical limitation - History of Present Illness Initial Comments: This is a 88-year-old female comes to the ER for evaluation regards to possible stroke which resolved, TIA symptoms. Patient then became significantly altered and agitated during EMS transport. On arrival to the ER patient became unresponsive and we did begin CPR with ACLS protocol Complaint: found unresponsive (Here in the emergency department) Bystander CPR Performed: No ROSC in the Field: No (Patient did not lose pulse until arrival in the emergency department) Treatments Prior to Arrival: other (0) - Related Data Home Medications Medication Instructions Recorded Confirmed Citalopram Hydrobromide [CeleXA] 20 mg PO DAILY 11/06/19 06/13/23 Levothyroxine Sodium [Synthroid] 75 mcg PO DAILY 11/06/19 06/13/23 Pravastatin Sodium [Pravachol] 40 mg PO DAILY 11/06/19 06/13/23 Fluticasone Nasal [place] [Flonase 1 spr EA NOSTRIL DAILY 11/14/21 06/13/23 Nasal [place]] Memantine [Namenda] 10 mg PO BID 11/14/21 06/13/23 Omeprazole 20 mg PO DAILY 11/14/21 06/13/23 Donepezil 23mg 23 mg PO DAILY 06/13/23 06/13/23 amLODIPine [Norvasc] 2.5 mg PO DAILY 06/13/23 06/13/23 Allergies Allergy/AdvReac Type Severity Reaction Status Date / Time No Known Allergies Allergy Verified 06/13/23 17:45 Review of Systems ROS Statement: Those systems with pertinent positive or pertinent negative responses have been documented in the HPI. ROS Other: All systems not noted in ROS Statement are negative. Past Medical History Past Medical History: Dementia, Hyperlipidemia, Thyroid Disorder Additional Past Medical History / Comment(s): A&O to 1 at baseline History of Any Multi-Drug Resistant Organisms: None Reported Past Surgical History: Appendectomy Additional Past Surgical History / Comment(s): VEIN STRIPPING Past Psychological History: No Psychological Hx Reported Smoking Status: Never smoker Past Alcohol Use History: Rare Past Drug Use History: None Reported General Exam Limitations: altered mental status General appearance: lethargic, obtunded Head exam: Present: atraumatic, normocephalic, normal inspection Eye exam: Present: other (Positive fixed and dilated) ENT exam: Present: normal exam, mucous membranes moist Neck exam: Present: normal inspection. Absent: tenderness, meningismus, lymph adenopathy Respiratory exam: Absent: normal lung sounds bilaterally (Apnea) Cardiovascular Exam: Present: irregular rhythm (Ventricular tachycardia and fibrillation), normal heart sounds. Absent: systolic murmur, diastolic murmur, rubs, gallop, clicks GI/Abdominal exam: Present: soft, normal bowel sounds. Absent: distended, tenderness, guarding, rebound, rigid Extremities exam: Present: normal inspection, full ROM, normal capillary refill. Absent: tenderness, pedal edema, joint swelling, calf tenderness Back exam: Present: normal inspection Psychiatric exam: Present: normal affect, normal mood Skin exam: Present: warm, dry, intact, normal color. Absent: rash Course - Reevaluation(s) Reevaluation #1: 08/26/23 21:45 medical record is reviewed Reevaluation #2: 08/26/23 21:46 Family does arrive states that patient is a no code, DO NOT RESUSCITATE Reevaluation #3: 08/26/23 21:46 Patient was reevaluated at 2134 with no pulse, patient is apneic no heart sounds pupils are fixed and dilated, pronounced Reevaluation #4: Was pt. sent in by a medical professional or institution (, PA, [employer], urgent care, hospital, or assisted...) When possible be specific @ -no Did you speak to anyone other than the patient for history (EMS, parent, family, police, friend...)? What history was obtained from this source @ -no Did you review nursing and triage notes (agree or disagree)? Why? @ -agree Are old charts reviewed (outside hosp., previous admission, EMS record, old EKG, old radiological studies, urgent care reports/EKG's, assisted records)? Report findings @ -yes Differential Diagnosis (chest pain, altered mental status, abdominal pain women, abdominal pain men, vaginal bleeding, weakness, fever, dyspnea, syncope, headache, dizziness, GI bleed, back pain, seizure, CVA, palpatations, mental health, musculoskeletal)? @ -prior EKG interpreted by me (3pts min.). @ -no X-rays interpreted by me (1pt min.). @ -no CT interpreted by me (1pt min.). @ -no U/S interpreted by me (1pt. min.). @ -no What testing was considered but not performed or refused? (CT, X-rays, U/S, labs)? Why? @ -none What meds were considered but not given or refused? Why? @ -none Did you discuss the management of the patient with other professionals (jordan guillermo i.eJasmine Rodriguez, PA, [employer], lab, RT, psych nurse, social services coordinator, head bucker, teacher, philanthropy officer, case therapist)? Give summary @ -no Was smoking cessation discussed for >3mins.? @ -no Was critical care preformed (if so, how long)? @ -yes31 Were there social determinants of health that impacted care today? How? (Homelessness, low income, unemployed, alcoholism, drug addiction, transportation, low edu. Level, literacy, decrease access to med. care, intermediate, rehab)? @ -none Was there de-escalation of care discussed even if they declined (Discuss DNR or withdrawal of care, Hospice)? DNR status @ -no What co-morbidities impacted this encounter? (DM, HTN, Smoking, COPD, CAD, Cancer, CVA, ARF, Chemo, Hep., AIDS, mental health diagnosis, sleep apnea, morbid obesity)? @ -none Was patient admitted / discharged? Hospital course, mention meds given and route, prescriptions, significant lab abnormalities, going to OR and other pertinent info. @ -88 female to ER for evaluation of cardiac arrest patient had cardiac arrest on arrival to the ER and did have strokelike symptoms prior to arrival. Patient was found to be a DO NOT RESUSCITATE patient, end-of-life care was terminated and patient was pronounced Undiagnosed new problem with uncertain prognosis? @ -no Drug Therapy requiring intensive monitoring for toxicity (Heparin, Nitro, Insulin, Cardizem)? @ -no Were any procedures done? @ -no Diagnosis/symptom? @ -Cardiac arrest Acute, or Chronic, or Acute on Chronic? @ -Acute Uncomplicated (without systemic symptoms) or Complicated (systemic symptoms)? @ -Complicated Side effects of treatment? @ -no Exacerbation, Progression, or Severe Exacerbation? @ -exacerbation Poses a threat to life or bodily function? How? (Chest pain, USA, [place], pneumonia, PE, COPD, DKA, ARF, appy, cholecystitis, CVA, Diverticulitis, Homicidal, Suicidal, threat to staff... and all critical care pts) @ -yes 8 patient is from CPR - Consultations Consultation #1: Talk with medical aides teacher who did release the patient's body Consultation #2: Did reach out to patient's primary care with no response Medical Decision Making - Medical Decision Making 88 female to ER for evaluation of presented in cardiac arrest. Patient did have cardiac arrest on arrival to the here to the emergency room. Patient was intubated and ACLS protocol was started, as patient continued to deteriorate family did arrive who did state patient is a DO NOT RESUSCITATE patient protocol was rescinded and patient was pronounced Critical Care Time Critical Care Time: Yes Total Critical Care Time: 31 Disposition Clinical Impression: Cardiac arrest Disposition: HOME SELF-CARE Condition: Good Is patient prescribed a controlled substance at d/c from ED?: No Referrals: James Warren MD [Primary Care Provider] - 1-2 days Time of Disposition: 21:34
== END 2023-08-26 23:40 | disposition home or self-care (01) ==
LOC: EC 20:43
DX: I46.9 Cardiac arrest, cause unspecified (principal)
CPT/HCPCS: 92950; 99285